=== PATIENT | male | born 1980 | race Caucasian/White ===

== ENCOUNTER → 2016-12-04 | Outpatient (CLI) | payer OTHER ==
[~2016-12-04] MED LIST: IBUP-103 PO; OXYC-106 PO; VNTHFA/IN INH
--- NOTE | 2016-12-04 13:34 | DIAGNOSTIC IMAGING REPORT ---
CT OF THE CHEST WITHOUT IV CONTRAST CLINICAL HISTORY: Shortness of breath and cough. History of aspiration pneumonia. COMPARISON STUDY: Chest radiograph October 26, 2016. CT DOSE: 355.76 mGy.cm TECHNIQUE: Axial images of the chest were obtained without IV contrast. Images were reviewed in the axial, sagittal, and coronal planes. IV contrast was not administered for this examination. FINDINGS: No enlarged axillary, mediastinal or hilar lymph nodes are present. The size of the heart is normal. There is no pericardial effusion. The central airways are patent. Mild lingular opacity favors atelectasis. There is mild groundglass opacity with mosaic attenuation within the anterior segment of the right upper lobe, the right middle lobe and portions of the right lower lobe. There is no pneumothorax or pleural effusion. No cavitation is present. There is mild multifocal mucoid impaction within the lingula. The bony thorax is unremarkable. Visualized portions of the upper abdomen are also unremarkable. There is an old L1 compression fracture. This is unchanged. IMPRESSION: 1. Mild groundglass opacities with mosaic attenuation, most evident within the right lung. The findings may reflect air trapping. 2. Lingular opacities suggestive of atelectasis. No consolidation to suggest pneumonia. 3. Old L1 compression fracture. Electronically signed by: Rex Clemons M.D. 12/04/2016 1:33 PM Dictated Date/Time: 12/04/2016 1:28 PM
== END | disposition home or self-care (01) ==
LOC: C.CTS 12:47
PROVIDERS: ATTEND Internal Medicine Pulmonary Disease
DX: J63 Pneumoconiosis due to other inorganic dusts (principal); R05 Cough; J45.909 Unspecified asthma, uncomplicated; R06.02 Shortness of breath; R91.8 Other nonspecific abnormal finding of lung field

== ENCOUNTER → 2016-12-08 | Outpatient (CLI) | payer OTHER ==
[2016-12-15 14:19] LABS: ASPERGILLUS FUMIGATUS NEGATIVE (NEGATIVE); M. FAENI (S. RECTIVIRGULA) NEGATIVE (NEGATIVE); PIGEON SERUM NEGATIVE (NEGATIVE); SACCHAROMONOSPORA VIRIDIS AB NEGATIVE (NEGATIVE); THERMOACTINOMYCES CANDIDUS NEGATIVE (NEGATIVE); THERMOACTINOMYCES VULGARIS NEGATIVE (NEGATIVE)
== END | disposition home or self-care (01) ==
LOC: C.LAB 10:01
PROVIDERS: ATTEND Internal Medicine Pulmonary Disease
DX: J44.9 Chronic obstructive pulmonary disease, unspecified (principal)

== ENCOUNTER → 2016-12-19 | Outpatient (CLI) | payer OTHER ==
--- NOTE | 2016-12-20 05:50 | PAP/PSG TECHNICIAN REPORT ---
[facility] Building Economist Polysomnogram Report Study name: None Report date: 12/20/2016 Study date: 12/19/2016 Referring Physician: Isaac Isabel M.D. Name: SHANTANU OFRD Interpreting Physician: Brenda Isabel M.D. Date of : 1980 Building Economist: LUIGI Mills. Sex: Male Age: 36 StudyType: PSG Weight: 179 lbs Height: 36 years, Height 5' 8" Neck Circum: 16 inches BMI: 27.21 Medications: Albuterol 108 ( 90 BASE), Symbicort, Oxy IR 20 mg Patient History 36 yr. old male here for a possible split night sleep study with ETC02. Patient complains of snoring and hypersomnia. Patients [place] Sleepiness scale score is 20/24. Parameters Monitored NPSG: E1-M2, E2-M1, Fp1-M2, Fp2-M1, F3-M2, F4-M2, F4-M1, C3-M2, C4-M2, C4-M1, O1-M2, O2-M2, O2-M1, T3-M2, T4-M1, P3-M2, P4-M1, CHIN1, CHIN2, HR, EKG, Legs, PFLOW, SNOR, FLOW, CFLOW, Tidal Volume, THOR, ABDO, SpO2, PLTH, CPRESS, ETCO2 Wave, ETCO2, pH Sleep Architecture Sleep Stages Time at Lights Off 11:03:22 PM STAGES Time (min.) TST (%) Time at Lights On 5:36:22 AM Wake 3.0 -- Total Recording Time (TRT) 393.00 min. N1 2.5 1 Total Sleep Period (TSP) 390.5 min. N2 148.5 38 Total Sleep Time (TST) 390.0min. N3 214.5 55 Awake Time 3.0 min. REM 24.5 6 Wake after Sleep Onset 0.5 min. Sleep Efficiency (SE) 99 % Sleep Onset Latency (DAWSON) 2.5 min. Number of Stage 1 Shifts None Awakenings 1 Stage Changes 30 Number of REM periods 2 REM 24.5 6 REM Latency 175.0 min. NREM 365.5 94 Body Position Analysis Supine Right Left Side Prone Vertical Total Sleep Time (min.) 393.0 0.0 0.0 0.00 0.0 0.0 Total Sleep Time (%) 100% 0% 0% 0 0% N/A% Total Sleep Time REM (min.) 24.5 0.0 0.0 None 0.0 0.0 Total Sleep Time NREM (min.) 365.5 0.0 0.0 None 0.0 0.0 Intermittent Wake (min.) 3.0 0.0 0.0 None 0.0 0.0 Total Sleep Period (%) 100% None None None None None Arousals Myoclonus (PLM) * Events Count Index Events Count Index Spontaneous 3 0 Events Awake (PLMW) 0 0.0 Respiratory 1 0.2 Events Asleep w/ Arousal (PLMA) 2 0.3 PLM 2 0 Events Asleep w/o Arousal (PLMS) 28 4.3 Snoring 3 0 Total Asleep 30 4.6 Total 9 1 Total 30 5 Respiratory Analysis * CA OA MA CH H RERA Total Count 0 0 1 0 29 0 30 Index 0.0 0.0 0.2 0 4.5 0 4.6 Mean Duration 0.0 0.0 14.2 0.00 24.5 0.0 24.2 Longest Duration 0.0 0.0 14.2 0.00 14.2 0.0 38.1 Respiratory Event Summary Total Supine ~Supine Right Left Prone REM NREM Apneas Count 1 1 N/A N/A N/A N/A 1 0 Index 0.2 0 N/A N/A N/A N/A 2 0 Hypopneas (4% Desat) Count 29 29 N/A N/A N/A N/A 7 22 Index 4.5 4.5 N/A N/A N/A N/A 17.1 3.6 Apneas & All Hypopneas Count 30 30 N/A N/A N/A N/A 8 22 Index 4.6 5 N/A N/A N/A N/A 19.6 3.6 Respiratory Events (Editing Clerk+All Hyp+RERA) Count 30 30 N/A N/A N/A N/A 8 22 Index 4.6 5 N/A N/A N/A N/A 19.6 3.6 Respiratory Related Arousal Count 1 30 N/A N/A N/A N/A 0 1 Index 0.2 0 N/A N/A N/A N/A 0 0 Snoring Analysis Supine Right Left Prone REM NREM Total Snore duration 24.2 min Snores count 992 N/A N/A N/A 31 961 992 Snore mean duration 1.5 Sec Snores index 153 N/A N/A N/A 75.9 157.8 152.6 TST with snoring (%) 6.2% SpO2 Analysis Total REM NREM Awake <50% 0.0 min. 0.0 min. 0.0 min. 0.0 min. 51 - 60% 0.0 min. 0.0 min. 0.0 min. 0.0 min. 61 - 70% 0.0 min. 0.0 min. 0.0 min. 0.0 min. 71 - 80% 0.0 min. 0.0 min. 0.0 min. 0.0 min. 81 - 90% 272.4 min. 7.5 min. 262.3 min. 2.7 min. 91 - 100% 119.9 min. 16.7 min. 103.0 min. 0.2 min. Average 89 91 89 87 Minimum SpO2 81 84 81 84 Desaturation Event Index 5.5 22.0 4.4 0.0 # Desat. Events below 89% 27 4 23 N/A Time(%) with Saturation below 89% 29.6 0.2 28.9 0.5 Time(min.) with Saturation below 89% 116.3 0.8 113.5 2.0 Heart Rate Analysis End Tidal CO2 Analysis Min (bpm) Max (bpm) Average (bpm) TSP (mins) % of TSP Awake 62 96 79 Above 55 mmHg 149.1 38.2 NREM 56 89 70 50-55 mmHg 39.7 10.2 REM 61 88 74 45-50 mmHg 115.7 29.7 Overall 56 89 70 40-45 mmHg 74.5 19.1 35-40 mmHg 9.6 2.5 30-35 mmHg 1.1 0.3 Average ETCO2 0.0 Supplemental O2 Values Minimum O2 level: None Value Start Time End Time Building Economist Comments Mr. Ford slept in the supine position. No cardiac arrhythmia or PLMs noted. No bruxism noted. Snoring was noted and scored as a 1 on a scale of 0 through 5. (0=no snoring, 5=snoring loud enough to be heard through a closed door or down the guevara way) Mr. Ford did not wake to use the restroom during the night. Mr. Ford stated,I usually wake up more. The final report will be interpreted and signed by a sleep physician. The completed physician report will then be placed in the patient medical record. Therapy (cm H2O) 0 TIB (min.) 393.0 TST (min.) 390.0 Sleep Onset (min.) 2.5 REM Onset From Sleep (min.) 175.0 Sleep Efficiency % 99 Wakefulness (%) 1 Wakefulness (min.) 3.0 NREM 1 (%) 1 NREM 1 (min.) 2.5 NREM 2 (%) 38 NREM 2 (min.) 148.5 NREM 3 (%) 55 NREM 3 (min.) 214.5 REM (%) 6 REM (min.) 24.5 # Arousals 9 Arousal Index 1 # Snore 992 Snore Index 152.6 AHI 4.6 AHI Supine 5 AHI Non-Supine N/A NREM AHI 3.6 REM AHI 19.6 RDI 4.6 # Obstructive Apnea 0 # Central Apnea 0 # Mixed Apnea 1 # Hypopneas 29 RERAs 0 Total Respiratory Events 31 Time Below SpO2 89% (min.) 114.3 Mean NREM SpO2 (%) 89 Mean REM SpO2 (%) 91 Mean Sleep SpO2 (%) 89 Min NREM SpO2 (%) 81 Min REM SpO2 (%) 84 Position Supine (min.) 393.0 Position Non-supine (min.) 0.0 LM Index Sleep 4.6 LM Index NREM 4.8 LM Index REM 2.4 Mean Heart Rate (bpm) 70 Min Heart Rate (bpm) 56
--- NOTE | 2017-01-06 21:24 | POLYSOMNOGRAPH REPORT ---
REFERRING PERSON: Brenda Isabel MD LABORATORY MECHANICAL TECHNICIAN: Cookie Grier Mr. Rios is a 36-year-old male, sent to the sleep lab for a possible split night sleep study. He complains of snoring and hypersomnia. His [place] sleepiness scale score on the evening of this study is 20. BMI is 27.21. Following the technical and digital specifications of the [place] [employer] (AASM) a standard diagnostic polysomnogram was performed monitoring EEG, EOG, EMG (chin and leg deviations), oxygen saturation, body position, digital video, respiratory effort and airflow. The sleep Stage and event scoring was based on the AASM Manual for the Scoring of Sleep and Associated Events 2007 edition. Apneas are defined as a drop in the peak thermal sensor excursion by >90% of baseline for at least 10 seconds. Hypopneas were scored using the 4% oxygen desaturation rule (4A-[employer]ic[employer]) and a decrease in the nasal pressure excursions by >30% of baseline for at least 10 seconds. Respiratory effort-related arousal (RERA's) is defined as a sequence of breaths lasting at least 10 seconds characterized by increasing respiratory effort or flattening of the nasal pressure waveform leading to an arousal from sleep when the sequence of breaths does not meet criteria for an apnea or hypopnea. Apnea Hypopnea index (AHI) is defined as the number of apneas and hypopneas occurring in an hour of sleep. Respiratory disturbance index (RDI) is defined as the number of apneas, hypopneas, and RERA's occurring in an hour of sleep. Mr. Sarabia total sleep period time was 390.5 minutes. Total sleep time was 390 minutes. Sleep efficiency was 99%. Latency to sleep onset was 2.5 minutes with wake after sleep onset of only 0.5 minutes. Total non-REM sleep time was 265.5 minutes. He spent 1% of that time in N1 sleep, 38% in N2 sleep and 55% in N3 sleep. REM latency was 175 minutes. Total REM sleep time was 24.5 minutes or 6% of total sleep time. There were 9 cortical arousals from sleep. Three of these arousals were due to snoring, 2 due to periodic limb movements of sleep and 1 due to respiratory event and 3 were spontaneous. There were 30 periodic limb movements noted on this test. Limb movement index was 4.6. Limb movement with arousal index was 0.3. On this sleep study, there were no obstructive apneas, no central apneas and one mixed apnea. Additionally, there were 29 hypopnea and no RERA. Apnea-hypopnea index was 4.6, which is normal. There were 992 snoring events recorded. Total sleep time with snoring was 6.2%. Mean saturation was low at 89%. Saturations dropped as low as 81% with the respiratory event. Saturations were less than 89% for 116.3 minutes of recorded time. Saturations started low in the beginning of the night and then dropped slightly low around 3:00 a.m. before recovering again. This is significant nocturnal hypoxemia. There was no cardiac ectopy noted on this study. Mr. Rios's heart rate ranged from a low of 56 beats per minute to a high of 89 beats per minute during sleep. End tidal CO2s were recorded on this test. End tidal CO2 did seem to be abnormal. The end tidal CO2s were between 30 and 35 mmHg for 0.3% of total sleep period time, between 35 and 40 mm for 2.5%, between 40 and 45 mm for 19.1%, between 45 and 50 mmHg for 29.7%, between 50 and 55 mmHg for 10.2% and above 55 mmHg for 38.2% of total sleep period time. Clinical correlation is needed. IMPRESSION AND PLAN: A 36-year-old male without evidence of sleep apnea, bruxism, parasomnia or clinically significant periodic limb movements of sleep. However, he does have nocturnal hypoxemia and evidence to suggest hypoventilation. This patient may benefit from oxygen therapy. His hypoventilation may be secondary to narcotic use. However, clinical correlation is needed.
== END | disposition home or self-care (01) ==
LOC: C.NEUR 21:00
PROVIDERS: ATTEND Family Medicine
DX: G47.31 Primary central sleep apnea (principal); F51.11 Primary hypersomnia; R06.83 Snoring; J45.909 Unspecified asthma, uncomplicated; G89.4 Chronic pain syndrome; G89.29 Other chronic pain; M50.30 Other cervical disc degeneration, unspecified cervical region

== ENCOUNTER 2017-11-15 10:08 | Emergency (ER) | payer OTHER ==
[~2017-11-15] VITALS: Ht 172.7 cm; Wt 85.5 kg
[~2017-11-15 10:08] MED LIST changes: -VNTHFA/IN INH
[2017-11-15 10:11] VITALS: BP 153/93; PULSE 105; TEMP 36.5; O2SAT 97; Ht 172.7 cm; Wt 85.5 kg
[2017-11-15] MEDS ORDERED: MTHL PO (10:18)
[2017-11-15] MEDS ORDERED: SULF800T23 PO (10:50)
[2017-11-15] MEDS ORDERED: CEPH500C2 PO (10:50)
--- NOTE | 2017-11-17 06:05 | EMERGENCY ROOM VISIT NOTE ---
ED Visit Note First contact with patient: 10:23 Chief Complaint: Right thumb pain and swelling. History of Present Illness: Mr. Mathis is a 37 year-old white male who ambulates into the ED accompanied by female friend complaining of right thumb pain and swelling. Historically patient reports that during the winter months his skin especially his on his hands become excessively dry and he gets a lot of cracking of the skin. Approximately 2 weeks ago he reports he developed an open wound from his skin cracking on the tip of his left thumb. He reports his had been cleaning it and trying to close the wound to prevent infection. Patient goes on to report that approximately 4 days ago he started noticing some redness and swelling from the interphalangeal joint to the tip of the finger. Since that time he reports she's been having increasing pain and has started to see redness over the tuft of the finger as well as around the interphalangeal joint. Currently he describes his pain as a pressure and throbbing sensation over the distal phalanxes. He rates his discomfort 8/10. His pain is nonradiating. His pain worsens with palpation of the finger and flexion and extension of the interphalangeal joint. He has not identified any alleviating factors related to the pain. He reports he has been taken ibuprofen and acetaminophen and has had mild and sometimes moderate relief of his discomfort. Associated with his pain he does report there is a mild numbness sensation through the distal thumb. He denies any direct trauma, fevers, chills, sweats, lymphangitis, thumb weakness, previous surgeries or injuries to the thumb. Review of Systems: As noted above in history of present illness. Past Medical History: Chronic back pain, aspiration pneumonitis and status post mandibular surgery Current Medications: Methadone. Allergies to Medications: Codeine. Social History: Patient is not employed; he lives with his family and feels safe in his home environment; he denies tobacco and alcohol use. Physical Examination: Vital Signs: Date Time Temp Pulse Resp B/P (MAP) Pulse Ox O2 Delivery O2 Flow Rate FiO2 11/15/17 10:11 36.5 105 18 153/93 97 Room Air GENERAL: 37-year-old white male in mild to moderate distress due to pain, nontoxic-appearing, afebrile and hemodynamically stable. NEUROLOGICAL: Awake, alert and oriented to person, place and time. Answering questions appropriately and following commands. Normal gait. Good hand eye coordination. No focal motor sensory deficits. SKIN: Warm, dry and pink. Right Thumb: Healing enclosed wound to the tip of the thumb with surrounding erythema and edema. Left Thumb: Open laceration due to dry skin over the tip of the thumb without signs of infection. RIGHT HAND: No gross bony deformity. As previously noted there is a healing wound to the tip of the thumb right by the fingernail over the distal phalanxes of the thumb. Patient goes on to have mild erythema through the tuft and around the interphalangeal joint line. This area is very tender to palpation. It is minimally warm to the touch. The external skin does not appear cellulitic. I do not appreciate any bony deformity or crepitus. He has no tenderness over the MCP joint and full range of motion of the MCP joint. His range of motion of the interphalangeal joint is decreased due to pain and swelling. There is good capillary refill of the thumb. He is able to distinguish light sensations through all dermatomes of the thumb. ED Course: Patient is assessed as noted above. Patient's medication list was reviewed. Patient thumb was placed in a thumb spica splint. Patient was educated about today's findings and instructed on his treatment plan ; he verbalized understanding and agreement with this plan. Clinical Impression: Laceration of the right thumb with infection. Disposition: Patient discharged home in stable condition accompanied by his ; prior to departure he was reassessed and subjectively reported he was feeling better and rated his discomfort 2/10. Plan: Patient was prescribed Keflex and Bactrim DS for 10 days and instructed on their use. Patient was encouraged to alternate ibuprofen and acetaminophen every 3 hours for pain. Patient was encouraged use ice over areas of pain and swelling 5-6 times a for 20 minutes. Patient was encouraged use thumb spica for 3-6 days or until pain free. Patient was encouraged to follow-up with his primary care provider return to the emergency department for recheck in 36-48 hours. Patient was educated on signs of worsening infection. Patient is encouraged return the ED sooner for worsening signs of infection, uncontrolled pain or any new/concerning symptoms.
== END 2017-11-15 11:00 | disposition home or self-care (01) ==
LOC: C.EDB 10:09 → C.EDA 11:00
DX: S61.011A Laceration without foreign body of right thumb without damage to nail, initial encounter (principal); X58.XXXA Exposure to other specified factors, initial encounter; M54.9 Dorsalgia, unspecified; G89.29 Other chronic pain; Z87.01 Personal history of pneumonia (recurrent); Z79.899 Other long term (current) drug therapy

== ENCOUNTER 2018-01-04 16:41 | Emergency (ER) | payer OTHER ==
[~2018-01-04] VITALS: Ht 172.7 cm; Wt 88.5 kg
[~2018-01-04 16:41] MED LIST changes: -IBUP-103 PO; +MTHL PO; -OXYC-106 PO
[2018-01-04 16:44] VITALS: TEMP 36.8; Ht 172.7 cm; Wt 88.5 kg
[2018-01-04] MEDS ORDERED: METHYLPREDNISOLONE 125 MG VIAL IV STA (16:57)
[2018-01-04] MEDS ORDERED: SODIUM CHLORIDE 0.9% 1000ML 1,000 ML IV STA (16:57)
[2018-01-04] MEDS ORDERED: METHYLPREDNISOLONE 60 MG in SYRINGE 0 ML IV SCH (16:57)
[2018-01-04] MEDS ORDERED: ALBUT/IPRATROP 3MG/0.5MG NEB 3 ML VIAL INH ONE (17:00)
--- NOTE | 2018-01-04 17:12 | DIAGNOSTIC IMAGING REPORT ---
CHEST ONE VIEW PORTABLE CLINICAL HISTORY: Pt c/o SOB dyspnea COMPARISON STUDY: 10/26/2016 FINDINGS: The bones soft tissues and hemidiaphragms are normal. The cardiomediastinal silhouette is normal. The lungs are clear. The pulmonary vasculature is normal. IMPRESSION: Negative chest. The above report was generated using voice recognition software. It may contain grammatical, syntax or spelling errors. Electronically signed by: Shaji Andres M.D. 01/04/2018 5:11 PM Dictated Date/Time: 01/04/2018 5:10 PM
[2018-01-04 17:19] VITALS: O2SAT 97
[2018-01-04 17:20] VITALS: PULSE 84; O2SAT 97
[2018-01-04 17:24] LABS: BASO % 0.4 %; BASO ABS # 0.05 K/uL (0-0.2); EOS % 10.1 %; EOS ABS # 1.26 K/uL (0-0.5); HEMATOCRIT 41.3 % (42-52); HEMOGLOBIN 14.5 g/dL (14.0-18.0); IG# 0.03 K/uL (0.00-0.02); LYMPH % 22.6 %; LYMPH ABS # 2.83 K/uL (1.2-3.4); MEAN CELL VOLUME 90.4 fL (80-100); MEAN CORPUSCULAR HEMOGLOBIN 31.7 pg (25-34); MEAN CORPUSCULAR HGB CONC 35.1 g/dl (32-36); MEAN PLATELET VOLUME 10.4 fL (7.4-10.4); MONO % 6.2 %; MONO ABS # 0.78 K/uL (0.11-0.59); NEUT % 60.5 %; NEUT ABS # 7.57 K/uL (1.4-6.5); PLATELET COUNT 228 K/uL (130-400); RED CELL DISTRIBUTION WIDTH CV 12.7 % (11.5-14.5); RED CELL DISTRIBUTION WIDTH SD 41.9 fL (36.4-46.3); WHITE BLOOD COUNT 12.52 K/uL (4.8-10.8)
[2018-01-04] MEDS ORDERED: MAGNESIUM SULFATE 1GM / D5W 1 GM BAG IV STA ×2 (17:31→17:32)
--- NOTE | 2018-01-04 17:33 | EMERGENCY ROOM VISIT NOTE ---
History Report prepared by Edmundo: Kayla Cassidy Under the Supervision of: Dr. Logan Andrews M.D. First contact with patient: 16:50 Chief Complaint: SHORTNESS OF BREATH Stated Complaint: SOB Nursing Triage Summary: patient c/o SOB. Unable to catch breathe with excertion. patient sees buffing wheel inspector at [facility] last breathing treatment @ 0400 History of Present Illness The patient is a 37 year old male who presents to the Emergency Room with complaints of worsening shortness of breath beginning about 2 days ago. The patient reports his shortness of breath worsens with exertion. The patient has a history of aspiration pneumonia and he follows up with a buffing wheel inspector at [facility]. He has breathing treatments at home and reports last using a treatment at 4 am. He reports no relief with his breathing treatments. Source of History: patient Onset: 2 days ago Position: other (generalized) Quality: other (shortness of breath) Timing: worsening Modifying Factors (Worsening): other (exertion) Associated Symptoms: + SOB Review of Systems See HPI for pertinent positives & negatives. A total of 10 systems reviewed and were otherwise negative. Past Medical & Surgical Medical Problems: (1) Aspiration pneumonitis (2) History of back problems Family History Depression Diabetes mellitus Hypertension Kidney disease Kidney stones Social History Smoking Status: Never Smoker Alcohol Use: occasionally Marital Status: Occupation Status: employed Current/Historical Medications Scheduled Methadone HCl (Methadone HCl), 15 MG PO QAM Prednisone (Prednisone Tab), 0 PO DAILY Allergies Coded Allergies: Codeine (Verified Adverse Reaction, Unknown, SENSATIVITY, 01/04/18) Physical Exam Vital Signs Date Time Temp Pulse Resp B/P (MAP) Pulse Ox O2 Delivery O2 Flow Rate FiO2 01/04/18 18:59 99 18 153/89 96 01/04/18 17:34 86 01/04/18 17:20 84 16 97 Room Air 01/04/18 17:19 97 Room Air 01/04/18 17:19 97 Room Air 01/04/18 16:47 94 Room Air 01/04/18 16:44 36.8 103 22 175/106 94 Room Air Physical Exam GENERAL: Awake, alert, well-appearing, in no acute distress HENT: Normocephalic, atraumatic. Oropharynx unremarkable. EYES: Normal conjunctiva. Sclera non-icteric. NECK: Supple. No nuchal rigidity. FROM. No JVD. RESPIRATORY: Bilateral wheezing throughout all lung stevens. CARDIAC: Regular rate, normal rhythm. Extremities warm and well perfused. Pulses equal. ABDOMEN: Soft, non-distended. No tenderness to palpation. No rebound or guarding. No masses. RECTAL: Deferred. MUSCULOSKELETAL: Chest examination reveals no tenderness. The back is symmetrical on inspection without obvious abnormality. There is no CVA tenderness to palpation. No joint edema. LOWER EXTREMITIES: Calves are equal size bilaterally and non-tender. No edema. No discoloration. NEURO: Normal sensorium. No sensory or motor deficits noted. SKIN: No rash or jaundice noted. Medical Decision & Procedures ER Provider Diagnostic Interpretation: Radiology results as stated below per my review and radiologist interpretation: CHEST ONE VIEW PORTABLE FINDINGS: The bones soft tissues and hemidiaphragms are normal. The cardiomediastinal silhouette is normal. The lungs are clear. The pulmonary vasculature is normal. IMPRESSION: Negative chest. The above report was generated using voice recognition software. It may contain grammatical, syntax or spelling errors. Electronically signed by: Shaji Andres M.D. Laboratory Results 01/04/18 17:14 Red Blood Count 4.57, Mean Corpuscular Volume 90.4, Mean Corpuscular Hemoglobin 31.7, Mean Corpuscular Hemoglobin Concent 35.1, Mean Platelet Volume 10.4, Neutrophils (%) (Auto) 60.5, Lymphocytes (%) (Auto) 22.6, Monocytes (%) (Auto) 6.2, Eosinophils (%) (Auto) 10.1, Basophils (%) (Auto) 0.4, Neutrophils # (Auto ) 7.57, Lymphocytes # (Auto) 2.83, Monocytes # (Auto) 0.78, Eosinophils # (Auto ) 1.26, Basophils # (Auto) 0.05 01/04/18 17:14 Test 01/04/18 17:10 01/04/18 17:14 Influenza Type A Antigen Neg for Influ A (NEG) Influenza Type B Antigen Neg for Influ B (NEG) White Blood Count 12.52 K/uL (4.8-10.8) Red Blood Count 4.57 M/uL (4.7-6.1) Hemoglobin 14.5 g/dL (14.0-18.0) Hematocrit 41.3 % (42-52) Mean Corpuscular Volume 90.4 fL (80-100) Mean Corpuscular Hemoglobin 31.7 pg (25-34) Mean Corpuscular Hemoglobin Concent 35.1 g/dl (32-36) Platelet Count 228 K/uL (130-400) Mean Platelet Volume 10.4 fL (7.4-10.4) Neutrophils (%) (Auto) 60.5 % Lymphocytes (%) (Auto) 22.6 % Monocytes (%) (Auto) 6.2 % Eosinophils (%) (Auto) 10.1 % Basophils (%) (Auto) 0.4 % Neutrophils # (Auto) 7.57 K/uL (1.4-6.5) Lymphocytes # (Auto) 2.83 K/uL (1.2-3.4) Monocytes # (Auto) 0.78 K/uL (0.11-0.59) Eosinophils # (Auto) 1.26 K/uL (0-0.5) Basophils # (Auto) 0.05 K/uL (0-0.2) RDW Standard Deviation 41.9 fL (36.4-46.3) RDW Coefficient of Variation 12.7 % (11.5-14.5) Immature Granulocyte % (Auto) 0.2 % Immature Granulocyte # (Auto) 0.03 K/uL (0.00-0.02) Anion Gap 5.0 mmol/L (3-11) Est Creatinine Clear Calc Drug Dose 119.8 ml/min Estimated GFR () 122.8 Estimated GFR (Non- 106.0 BUN/Creatinine Ratio 7.5 (10-20) Calcium Level 8.9 mg/dl (8.5-10.1) Total Bilirubin 0.5 mg/dl (0.2-1) Aspartate Amino Transf (AST/SGOT) 31 U/L (15-37) Alanine Aminotransferase (ALT/SGPT) 65 U/L (12-78) Alkaline Phosphatase 47 U/L (45-117) Total Protein 7.3 gm/dl (6.4-8.2) Albumin 3.3 gm/dl (3.4-5.0) Globulin 4.0 gm/dl (2.5-4.0) Albumin/Globulin Ratio 0.8 (0.9-2) Monoscreen NEG (NEG) Labs reviewed by ED physician. Medications Administered Medications (Trade) Dose Ordered Sig/Gilles Route Start Time Stop Time Status Last Admin Dose Admin Albuterol/ Ipratropium (Duoneb) 12 ml ONE ONCE INH 01/04/18 17:00 01/04/18 17:01 DC 01/04/18 17:20 12 ML Sodium Chloride 1,000 ml @ 999 mls/hr Q1H1M STAT IV 01/04/18 16:57 01/04/18 17:57 DC 01/04/18 16:57 999 MLS/HR Methylprednisolone Sodium Succinate 60 mg/Syringe 0.96 ml @ 1.5 mls/min TODAY@1657 IV 01/04/18 16:57 01/04/18 19:19 DC 01/04/18 17:31 1.5 MLS/MIN Magnesium Sulfate (Magnesium Sulfate) 1 gm NOW STAT IV 01/04/18 17:31 01/04/18 17:32 DC 01/04/18 17:42 1 GM Albuterol (Ventolin Hfa Inhaler) 2 puffs NOW STAT INH 01/04/18 18:26 01/04/18 18:27 DC 01/04/18 18:51 2 PUFFS Prednisone (PredniSONE TAB) 60 mg NOW STAT PO 01/04/18 18:55 01/04/18 18:56 DC 01/04/18 18:58 60 MG ECG Per My Interpretation Indication: SOB/dyspnea Rate (beats per minute): 88 Rhythm: normal sinus Findings: other (no ST elevation or depression) ED Course 1652: Past medical records reviewed. The patient was evaluated in room B12B. A complete history and physical examination was performed. 165: Ordered Methylprednisolone Sodium Succinate 60 mg/Syringe 0.96 ml @ 1.5 mls/min, Sodium Chloride 1000 ml @ 999 mls/hr, Solu-Medrol IV 60 mg IV. 1700: Ordered Duoneb 12 ml INH. 173: Ordered Magnesium Sulfate 1 gm IV. 1732: Ordered Magnesium Sulfate 1 gm IV. 1824: The patient is resting comfortably and he is feeling better after the breathing treatment. 1826: Ordered Albuterol 2 puffs INH. 1833: Upon reexamination the patient is resting comfortably. I discussed results and treatment plan with the patient. He verbalizes agreement and understanding. The patient is ready for discharge. Medical Decision Differential diagnosis: Etiologies such as infections, reactive airway disease, pneumonia, pneumothorax , COPD, CHF, cardiac ischemia, pulmonary embolism, musculoskeletal, gastrointestinal, as well as others were entertained. This is a 37-year-old male who presents emergency department complaining of wheezing. Patient was given an hour-long breathing treatment along with some Medrol magnesium here in the emergency department. Repeat examination revealed much improvement of patient's symptoms. Patient was given an albuterol inhaler for home will be placed on a prednisone taper. Patient was in agreement with the treatment plan. Medication Reconcilliation Current Medication List: was personally reviewed by me Blood Pressure Screening Patient's blood pressure: Elevated blood pressure Blood pressure disposition: Elevated BP felt to be situational Impression Primary Impression: Reactive airway disease Scribe Attestation The scribe's documentation has been prepared under my direction and personally reviewed by me in its entirety. I confirm that the note above accurately reflects all work, treatment, procedures, and medical decision making performed by me. Departure Information Dispostion Home / Self-Care Prescriptions Prednisone (Prednisone Tab) 20 Mg Tab 0 PO DAILY, #7 TAB 2 TABS DAILY FOR 2 DAYS, THEN 1 TAB DAILY FOR 2 DAYS, THEN 1/2 TAB DAILY FOR 2 DAYS. Prov: Logan Andrews MD 01/04/18 Referrals Gus Rojas M.D.(TITI) (PCP) Forms HOME CARE DOCUMENTATION FORM, IMPORTANT VISIT INFORMATION Patient Instructions ED Wheezing, My [facility] Additional Instructions Use breathing treatment twice eevry 6 hours You have been examined and treated today on an emergency basis only. This is not a substitute for, or an effort to provide, complete comprehensive medical care. It is impossible to recognize and treat all injuries or illnesses in a single emergency department visit. It is therefore important that you follow up closely with Dr Rojas. Call as soon as possible for an appointment. Thank you for your time and consideration. I look forward to speaking with you again soon. Please don't hesitate to call us if you have any questions. Problem Qualifiers Primary Impression: Reactive airway disease Asthma severity: unspecified severity Asthma persistence: unspecified Asthma complication type: uncomplicated Qualified Codes: J45.909 - Unspecified asthma, uncomplicated
[2018-01-04 17:41] LABS: ALBUMIN 3.3 gm/dl (3.4-5.0); CALCIUM 8.9 mg/dl (8.5-10.1); CREATININE 0.93 mg/dl (0.60-1.40); POTASSIUM 3.5 mmol/L (3.5-5.1)
[2018-01-04 17:45] LABS: TOTAL PROTEIN 7.3 gm/dl (6.4-8.2)
[2018-01-04 17:48] LABS: INFLUENZA B ANTIGEN Neg for Influ B (NEG)
[2018-01-04] MEDS ORDERED: PRED20TA2 PO (18:25)
[2018-01-04] MEDS ORDERED: ALBUTEROL HFA 8 GM INHALER INH STA (18:26)
[2018-01-04] MEDS ORDERED: EMPTY 8 DRAM VIAL ONE (18:57)
[2018-01-04 18:59] VITALS: BP 153/89; PULSE 99; O2SAT 96
== END 2018-01-04 18:59 | disposition home or self-care (01) ==
LOC: C.EDB 16:42
DX: J45.909 Unspecified asthma, uncomplicated (principal); Z79.899 Other long term (current) drug therapy; Z88.5 Allergy status to narcotic agent; Z87.01 Personal history of pneumonia (recurrent); Z82.49 Family history of ischemic heart disease and other diseases of the circulatory system; Z83.3 Family history of diabetes mellitus; Z84.1 Family history of disorders of kidney and ureter; Z81.8 Family history of other mental and behavioral disorders

== ENCOUNTER 2018-02-08 21:36 | Emergency (ER) | payer OTHER ==
[~2018-02-08] VITALS: Ht 172.7 cm; Wt 88.6 kg
[~2018-02-08 21:36] MED LIST changes: +PRED20TA2 PO
[2018-02-08 21:45] VITALS: TEMP 36.6; Ht 172.7 cm; Wt 88.6 kg
[2018-02-08] MEDS ORDERED: ALBUT/IPRATROP 3MG/0.5MG NEB 3 ML VIAL INH STA (22:02)
[2018-02-08] MEDS ORDERED: ALBUT/IPRATROP 3MG/0.5MG NEB 3 ML VIAL ONE (22:03)
[2018-02-08] MEDS ORDERED: METHYLPREDNISOLONE 125 MG VIAL IV STA (22:04)
[2018-02-08] MEDS ORDERED: MAGNESIUM SULFATE 1GM / D5W 100 ML IV STA ×2 (22:07→23:42)
[2018-02-08] MEDS ORDERED: ALBUT/IPRATROP 3MG/0.5MG NEB 3 ML VIAL INH ONE (22:15)
[2018-02-08 22:16] VITALS: PULSE 99; O2SAT 99
--- NOTE | 2018-02-08 22:30 | DIAGNOSTIC IMAGING REPORT ---
CHEST ONE VIEW PORTABLE CLINICAL HISTORY: CHEST PAIN dyspnea COMPARISON STUDY: 01/04/2018 FINDINGS: The bones soft tissues and hemidiaphragms are normal. The cardiomediastinal silhouette is normal. The lungs are clear. The pulmonary vasculature is normal. IMPRESSION: Negative chest. The above report was generated using voice recognition software. It may contain grammatical, syntax or spelling errors. Electronically signed by: Shaji Andres M.D. 02/08/2018 10:28 PM Dictated Date/Time: 02/08/2018 10:28 PM
[2018-02-08 22:44] LABS: BASO % 0.8 %; BASO ABS # 0.09 K/uL (0-0.2); EOS % 11.7 %; EOS ABS # 1.24 K/uL (0-0.5); HEMATOCRIT 42.2 % (42-52); HEMOGLOBIN 14.4 g/dL (14.0-18.0); IG# 0.03 K/uL (0.00-0.02); LYMPH % 25.9 %; LYMPH ABS # 2.75 K/uL (1.2-3.4); MEAN CELL VOLUME 91.7 fL (80-100); MEAN CORPUSCULAR HEMOGLOBIN 31.3 pg (25-34); MEAN CORPUSCULAR HGB CONC 34.1 g/dl (32-36); MONO % 6.2 %; MONO ABS # 0.66 K/uL (0.11-0.59); NEUT % 55.1 %; NEUT ABS # 5.83 K/uL (1.4-6.5); PLATELET COUNT 195 K/uL (130-400); RED CELL DISTRIBUTION WIDTH CV 12.7 % (11.5-14.5); RED CELL DISTRIBUTION WIDTH SD 42.2 fL (36.4-46.3)
[2018-02-08 23:03] LABS: ALBUMIN 3.6 gm/dl (3.4-5.0); ALT/SGPT 89 U/L (12-78); AST/SGOT 35 U/L (15-37); BLOOD UREA NITROGEN 8 mg/dl (7-18); CARBON DIOXIDE 32 mmol/L (21-32); CREATININE 0.79 mg/dl (0.60-1.40); GLUCOSE 108 mg/dl (70-99); POTASSIUM 3.5 mmol/L (3.5-5.1); SODIUM 138 mmol/L (136-145)
[2018-02-08 23:08] LABS: ALKALINE PHOSPHATASE 58 U/L (45-117); TOTAL PROTEIN 7.2 gm/dl (6.4-8.2)
[2018-02-08 23:51] VITALS: O2SAT 94
[2018-02-09] MEDS ORDERED: ALBUTEROL HFA 8 GM INHALER INH STA (01:13)
[2018-02-09] MEDS ORDERED: PRED50TA PO (01:16)
[2018-02-09 01:22] VITALS: BP 132/77; PULSE 81; O2SAT 94
--- NOTE | 2018-02-09 05:03 | EMERGENCY ROOM VISIT NOTE ---
History First contact with patient: 21:47 Chief Complaint: SHORTNESS OF BREATH Stated Complaint: HARD TIME BREATHING Nursing Triage Summary: pt c/o breathing difficulty. worse x2 days. used inhaler at home with only mild relief. pt with audible wheezing and retractions. History of Present Illness The patient is a 37 year old male who presents to the Emergency Room with complaints of wheezing and shortness of breath for the past few days it is steadily getting worse. Patient has a history of reactive airway disease. He has tried home nebulizers with no improvement of symptoms. Patient follows with pulmonology at [facility]. He had steroids last month. Patient denies exertional chest pain, fevers, productive cough, abdominal pain, leg pain or swelling, lightheadedness or dizziness. Review of Systems An 10 system review of systems was completed with positives and pertinent negatives listed in the HPI. Past Medical/Surgical History Medical Problems: (1) Aspiration pneumonitis (2) History of back problems Family History Depression Diabetes mellitus Hypertension Kidney disease Kidney stones Social History Smoking Status: Former Smoker Alcohol Use: occasionally Drug Use: none Marital Status: Occupation Status: employed Current/Historical Medications Scheduled Methadone HCl (Methadone HCl), 17 MG PO QAM Prednisone (Prednisone), 50 MG PO DAILY Physical Exam Vital Signs Date Time Temp Pulse Resp B/P (MAP) Pulse Ox O2 Delivery O2 Flow Rate FiO2 02/09/18 01:22 81 18 132/77 94 02/09/18 00:45 81 18 132/77 94 Room Air 02/08/18 23:51 94 Room Air 02/08/18 23:44 115 92 Room Air 02/08/18 23:36 89 19 130/100 91 Room Air 02/08/18 22:48 96 22 122/104 100 Nebulizer 7.0 02/08/18 22:45 94 Room Air 02/08/18 22:41 112 02/08/18 22:34 100 02/08/18 22:16 99 16 99 Mask 7.0 02/08/18 21:45 36.6 98 26 160/99 94 Room Air Physical Exam PHYSICAL EXAM: Vital Signs: Reviewed Nurse's notes. Oxygen saturation was 94% on room air. GENERAL: Pleasant male, Alert, oriented and coherent. The patient barely able to speak in complete sentences. NECK: Supple, non-tender. CHEST: Symmetrical expansion. + retractions + accessory muscle use. HEART: Regular rate and normal heart sounds, no murmur, gallop or rub. LUNGS: Breath sounds equal but significantly diminished in intensity on both sides. Bilateral wheezes heard but no rales or pleuritic rub. SKIN: The skin was without rashes, erythema, edema, or bruising. There is no tenting of the skin. Capillary reflex less than 2 seconds. HEAD: Normocephalic atraumatic. EARS: External auditory canals clear, tympanic membranes pearly tellez without erythema or effusion bilaterally. EYES: Pupils equal round and reactive to light and accommodation. Conjunctivae without injection, sclerae without icterus. Extraocular movements intact. NOSE: Patent, turbinates without inflammation or discharge. No sinus tenderness. MOUTH: Mucous membranes moist. Pharynx without erythema or exudate. Uvula midline. Airway patent. Tongue does not deviate. ABDOMEN: Positive bowel sounds x 4. Normal tympanic percussion. Soft, nontender, without masses or organomegaly. Odom sign negative. No guarding or rebound tenderness. MUSCULOSKELETAL: No muscle atrophy, erythema, or edema noted. NEURO: Patient was alert and oriented to person place and time. Normal sensation to light and sharp touch. No focal neurological deficits. Medical Decision & Procedures Laboratory Results 02/08/18 22:35 Red Blood Count 4.60, Mean Corpuscular Volume 91.7, Mean Corpuscular Hemoglobin 31.3, Mean Corpuscular Hemoglobin Concent 34.1, Mean Platelet Volume 11.0, Neutrophils (%) (Auto) 55.1, Lymphocytes (%) (Auto) 25.9, Monocytes (%) (Auto) 6.2, Eosinophils (%) (Auto) 11.7, Basophils (%) (Auto) 0.8, Neutrophils # (Auto ) 5.83, Lymphocytes # (Auto) 2.75, Monocytes # (Auto) 0.66, Eosinophils # (Auto ) 1.24, Basophils # (Auto) 0.09 02/08/18 22:35 Test 02/08/18 22:35 White Blood Count 10.60 K/uL (4.8-10.8) Red Blood Count 4.60 M/uL (4.7-6.1) Hemoglobin 14.4 g/dL (14.0-18.0) Hematocrit 42.2 % (42-52) Mean Corpuscular Volume 91.7 fL (80-100) Mean Corpuscular Hemoglobin 31.3 pg (25-34) Mean Corpuscular Hemoglobin Concent 34.1 g/dl (32-36) Platelet Count 195 K/uL (130-400) Mean Platelet Volume 11.0 fL (7.4-10.4) Neutrophils (%) (Auto) 55.1 % Lymphocytes (%) (Auto) 25.9 % Monocytes (%) (Auto) 6.2 % Eosinophils (%) (Auto) 11.7 % Basophils (%) (Auto) 0.8 % Neutrophils # (Auto) 5.83 K/uL (1.4-6.5) Lymphocytes # (Auto) 2.75 K/uL (1.2-3.4) Monocytes # (Auto) 0.66 K/uL (0.11-0.59) Eosinophils # (Auto) 1.24 K/uL (0-0.5) Basophils # (Auto) 0.09 K/uL (0-0.2) RDW Standard Deviation 42.2 fL (36.4-46.3) RDW Coefficient of Variation 12.7 % (11.5-14.5) Immature Granulocyte % (Auto) 0.3 % Immature Granulocyte # (Auto) 0.03 K/uL (0.00-0.02) Anion Gap 4.0 mmol/L (3-11) Est Creatinine Clear Calc Drug Dose 141.2 ml/min Estimated GFR () 134.8 Estimated GFR (Non- 116.3 BUN/Creatinine Ratio 10.6 (10-20) Calcium Level 9.0 mg/dl (8.5-10.1) Magnesium Level 1.9 mg/dl (1.8-2.4) Total Bilirubin 0.5 mg/dl (0.2-1) Direct Bilirubin 0.1 mg/dl (0-0.2) Aspartate Amino Transf (AST/SGOT) 35 U/L (15-37) Alanine Aminotransferase (ALT/SGPT) 89 U/L (12-78) Alkaline Phosphatase 58 U/L (45-117) Troponin I < 0.015 ng/ml (0-0.045) Total Protein 7.2 gm/dl (6.4-8.2) Albumin 3.6 gm/dl (3.4-5.0) Medications Administered Medications (Trade) Dose Ordered Sig/Gilles Route Start Time Stop Time Status Last Admin Dose Admin Albuterol/ Ipratropium (Duoneb) 12 ml ONE ONCE INH 02/08/18 22:15 02/08/18 22:16 DC 02/08/18 22:15 12 ML Albuterol/ Ipratropium (Duoneb) 3 ml NOW STAT INH 02/08/18 22:02 02/08/18 22:03 DC 02/08/18 22:02 3 ML Methylprednisolone Sodium Succinate (Solu-Medrol IV) 125 mg NOW STAT IV 02/08/18 22:04 02/08/18 22:05 DC 02/08/18 22:38 125 MG Magnesium Sulfate 100 ml @ 100 mls/hr NOW STAT IV 02/08/18 22:07 02/08/18 23:06 DC 02/08/18 22:40 100 MLS/HR Magnesium Sulfate 100 ml @ 100 mls/hr NOW STAT IV 02/08/18 23:42 02/09/18 00:41 DC 02/08/18 23:46 100 MLS/HR Prednisone (PredniSONE TAB) 60 mg NOW STAT PO 02/09/18 01:13 02/09/18 01:14 DC 02/09/18 01:24 60 MG Albuterol (Ventolin Hfa Inhaler) 2 puffs ONE STAT INH 02/09/18 01:13 02/09/18 01:14 DC 02/09/18 01:23 2 PUFFS ED Course Prior records/ancillary studies reviewed. Triage Nursing notes reviewed. Additional history obtained from the family. The patient's history was concerning for respiratory difficulties. Differential diagnosis: Etiologies such as infections, reactive airway disease, pneumonia, pneumothorax , COPD, CHF, cardiac ischemia, pulmonary embolism, musculoskeletal, gastrointestinal, as well as others were entertained. Physical examination: As above. ER treatment provided: Hour-long nebulizer, magnesium, Solu-Medrol On reassessment the patient felt better. Diagnostic interpretation by me: The electrocardiogram was negative for acute ischemic or pathologic change. Normal sinus, normal intervals, no acute ST-T wave changes, rate of 98. Impression normal sinus rhythm interpreted by myself The labs revealed no worrisome leukocytosis. Negative troponin. Mild hyperglycemia without DKA Imaging studies: Chest x-ray no acute consolidation, pneumothorax or free of my interpretation This appears to be consistent with reactive airway disease. Patient felt much better to being medicated as above. His ventilatory pulse ox was 94%. He requested to leave. I felt this was reasonable. He was started on steroids. He was advised to follow-up with family doctor or pulmonology in the next few days or here in the ER sooner for chest pain, difficulty breathing, worsening signs or symptoms or as needed.. Patient had no pneumonia on x-ray. He has a history of reactive airway and symptoms are similar. By the evaluation outlined above emergent etiologies such as CHF, cardiac ischemia, pulmonary embolism, pneumonia, pneumothorax, musculoskeletal, serious bacterial infections, as well as others were deemed relatively unlikely. The pt informed about the findings as listed above. All questions were answered and pleased with the treatment. Return instructions were outlined and the patient was discharged in stable condition. Outpatient prescription management: Prednisone Referral: The patient was referred back to their primary care physician for follow-up in 2 to 3 days for a recheck of the current condition. Case reviewed with my attending The chart was completed utilizing [employer] Speech voice recognition software. Grammatical errors, random word insertions, pronoun errors, and incomplete sentences are an occassional consequence of this system due to software limitations, ambient noise, and hardware issues. Any formal questions or concerns about the content, text, or information contained within the body of this dictation should be directly addressed to the physician assistant property manager for clarification. Medical Decision As above Medication Reconcilliation Current Medication List: was personally reviewed by me Blood Pressure Screening Patient's blood pressure: Normal blood pressure Impression Primary Impression: Reactive airway disease Departure Information Dispostion Home / Self-Care Condition GOOD Prescriptions Prednisone (Prednisone) 50 Mg Tab 50 MG PO DAILY for 4 Days, #4 TAB Prov: Nettie Manuel PA-C 02/09/18 Forms HOME CARE DOCUMENTATION FORM, IMPORTANT VISIT INFORMATION Patient Instructions My [facility] Additional Instructions Albuterol Inhaler: Take 2 puffs four times daily for five days, then as needed. Prednisone 50mg: Once daily until the prescription is finished. It is best to take this earlier in the day as some patients note occasional difficulty falling asleep when taken in the late evening. Acetaminophen(Tylenol) may be used for fever or pain. Use 1000mg every six hours as needed. Avoid using more than 3000mg in a 24 hour period. (AND/OR) Ibuprofen(Motrin, Advil) may be used for fever or pain. Use 600mg every six hours as needed. Take with food. Avoid using more than 2400mg in a 24 hour period. Do not use 2400mg per day for more than three consecutive days without physician direction. Prolonged inappropriate use can lead to stomach upset or ulcers. Rest and drink plenty of fluids. Avoid smoke/smoking, fumes, dust, or any triggers in the past that may have affected your breathing. Continue current medications. Return to the ER for chest pain, difficulty breathing, fevers, vomiting, worsening of your condition, or as needed. Follow up with your primary physician this week for a recheck of your current condition. Problem Qualifiers Primary Impression: Reactive airway disease Asthma severity: moderate Asthma persistence: persistent Asthma complication type: with acute exacerbation Qualified Codes: J45.41 - Moderate persistent asthma with (acute) exacerbation
== END 2018-02-09 01:23 | disposition home or self-care (01) ==
LOC: C.EDB 21:38 → C.EDC 02-09 01:23
DX: J45.41 Moderate persistent asthma with (acute) exacerbation (principal); Z87.891 Personal history of nicotine dependence; Z79.899 Other long term (current) drug therapy; Z83.3 Family history of diabetes mellitus; Z82.49 Family history of ischemic heart disease and other diseases of the circulatory system; Z84.1 Family history of disorders of kidney and ureter